=== PATIENT | female | born 1970 | race Caucasian/White ===

== ENCOUNTER 2016-12-11 10:00 | Emergency (ER) | payer BC, OTHER ==
--- OUTSIDE RECORDS SUMMARY | 2016-12-11 10:36 | XMS REPORT | Continuity of Care Document ---
:1970 Demographics Phone Unavailable Preferred Language Unknown Marital Status Unknown Zoroastrian Affiliation Unknown Race Unknown Ethnic Group Unknown Author Organization [facility] ([facility]) [place] [address] Phone [phone] Care Team Providers Name Role Phone Unavailable Primary Care Provider Unavailable Source Comments This disclosure is being made pursuant to the Care Everywhere program, applicable federal and state laws, and may not contain all informaitonavailable regarding this patient.[facility] ([facility]) Active Allergies and Adverse Reactions Not on File Current Medications Not on file Active Problems Not on file Social History Tobacco Use Types Packs/Day Years Used Date Never Assessed Plan of Care Health Maintenance Due Date Last Done Comments Hepatitis B Vaccine (1 of 3 - Primary Series) 1970 Tdap Vaccine 1981 Lipid Disorder Screening 1988 MMR Vaccine 1988 Td Vaccine 1988 Cervical Cancer Screening 2000 Mammogram 2010 Influenza Vaccine: Seasonal (#1) 02/23/2016 Results from Last 3 Months Not on file
[2016-12-11] MEDS ORDERED: KETOROLAC TROMETHAMINE 60 MG/2 ML VIAL IM ONE ×2 (10:49→10:53)
--- NOTE | 2016-12-11 10:57 | ERNOTE ---
Upper Extremity HPI - Narrative Date of Service: 12/11/16 - - General Extremities Pain Location: hand: left Time Seen by Provider: 12/11/16 10:25 Source: patient Exam Limitations: no limitations - Immun/Allergies/Home Medications Immunizations: IMMUNIZATION HX Immunizations Up to Date Yes History of Influenza Vaccine No Hx Pneumococcal Vaccination No Allergies/Adverse Reactions: Allergies Allergy/AdvReac Type Severity Reaction Status Date / Time No Known Allergies Allergy Verified 12/11/16 10:14 Home Medications: HOME MEDICATIONS FLUoxetine HCL [Prozac] 40 mg PO DAILY 03/22/14 [Last Taken 04/01/16] Valsartan/Hydrochlorothiazide [Diovan Hct 160-12.5 mg Tab] 1 each PO DAILY 03/22 [Last Taken 04/01/16] Ibuprofen [Motrin] 800 mg PO TID #60 tab 12/11/16 [Last Taken Unknown] - Pain Score Pain Score #1 Pain Score: 5 - History of Present Illness Narrative: Patient is a 46 year old female who presents to the ED with complaints of pain to left hand and wrist. Patient states she was building a fence last --states she was "holding a fence up for her significant other. States she did not notice or feel anything unusual, denies trauma to hand, falls, pops or tears in bone/ligament, yet states she awoke Sunday 12/03 and noticed swelling and pain to top of left hand. States throughout the week the swelling would decrease at times yet few days ago returned. States pain has progressively worsened since Tuesday. Pain originates top of left hand and radiates down into left wrist. Patient has good ROM of left wrist, positive sensation to finger tips and capillary refill < 3 seconds. Strong left radial pulse Date (Duration): 12/02/16 Occurred: last week Location of Incident: home Severity: mild Method of Injury: Reports: unknown Reason for Fall: Reports: other - did not fall, denies injury Loss of Consciousness: Reports: no loss of consciousness Modifying Factors - (Improves): Reports: other - has attempted Tylenol without relief Associated Symptoms: Denies: tingling, weakness, numbness distally, loss of feeling, loss of power (lt arm) Other Injuries: Reports: none Review of Systems - Review of Systems Constitutional: Present: no symptoms reported. Absent: recent illness, fever, chills EYE: Present: no symptoms reported ENT: Present: no symptoms reported Respiratory: Present: no symptoms reported. Absent: shortness of breath, cough Cardiology: Present: no symptoms reported. Absent: chest pain, syncope Gastrointestinal/Abdominal: Present: no symptoms reported. Absent: nausea, vomiting, diarrhea Genitourinary: Present: no symptoms reported Musculoskeletal: Absent: back pain, muscle pain, muscle stiffness, joint pain, joint swelling Skin: Absent: rash Neurological: Present: no symptoms reported Endocrine: Present: no symptoms reported Hematologic/Lymphatic: Present: no symptoms reported Psych: Present: no symptoms reported - Patient's Past Medical History Patient History - Medical: Depression Patient History - Cardiac/Respiratory: Hypertension, Hyperlipidemia Patient History - Cancer: No Hx of Cancer Patient History - Surgical Procedures: T & A, Other Patient History - Other: None LMP (females 10-50): other - Social History Living Situations: home Psych History: No pertinent hx Smoking Status: Current every day smoker - Immunizations Immunizations Up to Date: Yes Hx Pneumococcal Vaccination: No History of Influenza Vaccine: No Physical Exam - Physical Exam General Appearance: Present: wd/wn, alert, no apparent distress Eye Exam: Normal inspection: bilateral Ears, Nose, Throat: Present: normal ENT inspection Neck: Present: normal inspection, nontender, supple, full range of motion. Absent: limited range of motion, lymphadenopathy (R), lymphadenopathy (L) Respiratory: Present: no respiratory distress, normal breath sounds, no accessory muscle use, chest nontender, lungs clear Cardiovascular/Chest: Present: regular rate, rhythm, no murmur, normal peripheral pulses Peripheral Pulses: N=norm/S=strong/W=weak/B=bound/A=absent: Radial (R): Normal, Radial (L): Normal Gastrointestinal/Abdominal: Present: normal bowel sounds Rectal Exam: Present: deferred Back Exam: Present: normal inspection, normal range of motion, no CVA tenderness , no vertebral tenderness Extremity Exam: Present: normal except - - swelling to top of left hand. Absent : non-tender - tender to top of left hand and left wrist, decreased range of motion Neurological Exam: Present: alert, oriented, normal mood/affect, no motor/ sensory deficits Skin Exam: Present: normal color, warm/dry Lymphatic Exam: Present: no adenopathy ED Progress - Vital Signs Patient's Vital Signs:: I have reviewed the patient's vital signs. Vital Signs: Vital Signs 12/11/16 10:10 Temperature 36.7 C Pulse Rate 69 Respiratory 16 Rate Blood Pressure 161/104 O2 Sat by Pulse 98 Oximetry - X-Ray X-Ray #1 X-Ray: hand Interpretation: Reviewed by me X-ray Comments: No acute findings, no obvious fractures, soft tissue swelling noted - Progress/Reassessment Chief Complaint: Upper Extremity Injury/Problem Progress:: Unchanged Departure Clinical Impression: Tendinopathy - Departure Disposition: Home Follow Up Needed Condition: Good Instructions: Contusion, [id number], Form - Excuse from Work, School, or Physical Activity Additional Instructions: tendons can take 2-4 weeks to heal. Ice multiple times per day x 30 minutes with splint to help decrease pain and swelling. Wear splint as instructed for 3 -5 days. Referrals: John Reis MD [Primary Care Provider] - Prescriptions: Ibuprofen [Motrin] 800 mg PO TID #60 tab
[2016-12-11 11:00] VITALS: BP 154/92
== END 2016-12-11 11:51 | disposition home or self-care (01) ==
LOC: ER 10:00
PROC: 2W3FX1Z Immobilization of Left Hand using Splint (ICD-10-PCS; principal; 2016-12-11)
DX: M67.942 Unspecified disorder of synovium and tendon, left hand (principal); F17.200 Nicotine dependence, unspecified, uncomplicated; F32.9 Major depressive disorder, single episode, unspecified; I10 Essential (primary) hypertension